=== PATIENT | male | born 1975 | race Caucasian/White ===

== ENCOUNTER → 2016-12-31 | Outpatient (CLI) | payer BC ==
--- NOTE | 2016-12-31 18:03 | DIAGNOSTIC IMAGING REPORT ---
CERVICAL SPINE MRI HISTORY: Neck pain. TECHNIQUE: Multiplanar multisequence MRI of the cervical spine was performed without the use of contrast. COMPARISON STUDY: None. FINDINGS: Alignment and curvature are intact. No fractures within the cervical spine. Prevertebral soft tissues and the C1-C2 interval are maintained. The visualized posterior fossa is unremarkable. The cervical spinal cord is normal in signal intensity. Disc spaces are relatively preserved. C2-C3: No significant central canal or neural foraminal narrowing. C3-C4: Small bilateral paracentral focal disc protrusions, left greater than right. The left paracentral disc protrusion abuts and slightly deforms the left anterior cord. There is associated mild left neural foraminal narrowing. C4-C5: No significant central canal or neural foraminal narrowing. C5-C6: No significant central canal or neural foraminal narrowing. C6-C7: Small broad-based posterior disc protrusion without significant central canal or neural foraminal narrowing. C7-T1: No significant central canal or neural foraminal narrowing. IMPRESSION: 1. Small bilateral paracentral focal disc protrusions, left greater than right, at the C3-C4 level. The left paracentral disc protrusion abuts and slightly deforms the left anterior cord and results in mild left neural foraminal narrowing. 2. Small broad-based posterior disc protrusion at C6-C7 without significant central canal or neural foraminal narrowing. Electronically signed by: Darryl Ortega M.D. 12/31/2016 6:02 PM Dictated Date/Time: 12/31/2016 5:57 PM
== END | disposition home or self-care (01) ==
LOC: C.MRI 17:04
PROVIDERS: ATTEND Internal Medicine
DX: M50.20 Other cervical disc displacement, unspecified cervical region (principal)